=== PATIENT | female | born 2000 | race Caucasian/White ===

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

== ENCOUNTER 2019-12-12 03:48 | Emergency (ER) | payer OTHER ==
[~2019-12-12] VITALS: Ht 170.2 cm; Wt 52.4 kg
[~2019-12-12 03:48] MED LIST changes: +HYDR-3165 PO; -HYDR-971 PO
--- NOTE | 2019-12-12 03:52 | PHYS DOC ---
Past History Past Medical History: Bronchitis, Endometriosis Past Medical History History of endometriosis, history of dysfunctional uterine bleeding, gravid approximately 5 weeks-first Past Surgical History: Other Smoking: Non-smoker (Vapes), Cigarettes Alcohol Use: None Drug Use: None General Adult HPI: HPI: ".. I ve been having some spotting.. and severe cramping... worse than my endometriosis... But I am about 5 weeks .... And starting to worry and maybe have an ectopic ..." Patient is a 19 year old female who presents with above history and complaints of with lower pelvic pain and spotting. Patient estimates she is 5 weeks . Patient has followed at the [facility]. Has planned THEATRICAL AGENT visit on January 03. at . Patient is taking vitamins. Patient does vape. No history of STDs. Has had 10 lifetime sex partner. Patient denies any trauma. Patient denies any travel outside the [facility]. Patient denies any history immunosuppression suppression. Patient does have a history of endometriosis and dysfunctional uterine bleeding. Patient denies any recent bad food intake. Has had normal bowel movements. No history of ill contacts and no history of abuse. Review of Systems: Review of Systems: Constitutional: Denies fever or chills Eyes: Denies change in visual acuity HENT: Denies nasal congestion or sore throat Respiratory: Denies cough or shortness of breath Cardiovascular: Denies chest pain or edema GI: Complains of abdominal pain, nausea,. Denies vomiting, bloody stools or diarrhea . Complains of vaginal spotting : Denies dysuria Musculoskeletal: Denies back pain or joint pain Integument: Denies rash Neurologic: Denies headache, focal weakness or sensory changes Endocrine: Denies polyuria or polydipsia Lymphatic: Denies swollen glands Psychiatric: Denies depression or anxiety Heart Score: Risk Factors: Risk Factors: DM, Current or recent (<one month) smoker, HTN, HLP, family his tory of CAD, obesity. Risk Scores: Score 0 - 3: 2.5% MACE over next 6 weeks - Discharge Home Score 4 - 6: 20.3% MACE over next 6 weeks - Admit for Clinical Observation Score 7 - 10: 72.7% MACE over next 6 weeks - Early Invasive Strategies Family History: Family History: Noncontributory Current Medications: Current Meds: See nursing for home meds Allergies: Allergies: Allergies Coded Allergies Type Severity Reaction Last Updated Verified No Known Drug Allergies 10/11/16 No Physical Exam: PE: Constitutional: Moderate acute emotional distress, non-toxic appearance. [] HENT: Normocephalic, atraumatic, bilateral external ears normal, oropharynx moist, no oral exudates, nose normal. [] Eyes: PERRLA, EOMI, conjunctiva normal, no discharge. [] Neck: Normal range of motion, no tenderness, supple, no stridor. [] Cardiovascular:Heart rate regular rhythm, no murmur [] Lungs & Thorax: Bilateral breath sounds equal at apex with scattered wheezes on auscultation [] Abdomen: Bowel sounds normal, soft, lower pelvic tenderness, no masses, no pulsatile masses. [] Does have some spotting from os. Mild cervical motion tenderness. Some localization of left adnexal area. Rectal nontender. No b leeding. Mild rebound to the lower pelvic area. Skin: Warm, dry, no erythema, no rash. [] Back: No tenderness, no CVA tenderness. [] Extremities: No tenderness, no cyanosis, no clubbing, ROM intact, no edema. [] No psoas muscle sign. Neurologic: Alert and oriented X 3, normal motor function, normal sensory function, no focal deficits noted. [] DTRs +2 patellar brachial. Silver Solderer equal. No drift. Psychologic: Affect very anxious, judgement normal, mood normal. [] EKG: EKG: [] Radiology/Procedures: Radiology/Procedures: [][place] [id number] IMAGING REPORT Signed PATIENT: YESSI ARIAS ACCOUNT: [id number] : 2000 LOCATION: ER AGE: 19 SEX: F EXAM STATUS: REG ER ORD. PHYSICIAN: ABBY MARTINEZ MD REASON: 5 week gravid, spotting and cramping PROCEDURE: TRANSVAGINAL Transvaginal OB ultrasound less than 14 weeks 12/12/2019 CLINICAL HISTORY: First trimester with spotting and cramping. TECHNIQUE: A transvaginal pelvic ultrasound was performed. Multiple images were obtained. FINDINGS: Within the endometrial canal of the fundus/body of the uterus, an oval-shaped structure consistent with a gestational sac is seen. There is a small associated yolk sac. The mean sac diameter is 6.1 mm. This corresponds to an estimated gestational age by ultrasound of 5 weeks 2 days plus or minus a standard deviation of 5 days. No embryonic pole is seen at this time to confirm a living IUP. The right ovary is normal in size and echogenicity. It measures 2.2 x 1.2 x 1.1 cm in size. The left ovary is normal in size. It measures 2.6 x 2.3 x 2.2 cm in size. Within the left ovary a rounded structure with internal echoes is seen consistent with a corpus luteum. This measures 1.4 cm in size. Small amount of free fluid is seen within the pelvis. IMPRESSION: Findings are seen which are most consistent with a very early IUP as discussed above. Electronically signed by: John Lainez MD (12/12/2019 6:12 AM) [id number] DICTATED AND SIGNED BY: JOHN LAINEZ MD DATE: 12/12/19611 CC: ABBY MARTINEZ MD; PCP,NO ~ Course & Med Decision Making: Course & Med Decision Making Pertinent Labs and Imaging studies reviewed. (See chart for details) Patient can continue pad counts. Get repeat beta hCG in 3 days. Follow-up cultures. Make plans for site of delivery since [facility] does not offer DRAPERY INSTALLER's admission services. Must stop smoking. IUP can not yet be confirmed, but does appear to have a intrauterine . Impression: 1. Abdomen Pain 2. Threaten 3. Tobacco Use- Vapes 4. Hx. Endometriosis and dysfunctional uterine bleeding. 5. BHCG 3645 6. Blood type B positive 7. Bacterial Vaginosis-few clue Cells- Pt. to follow up pending labs. (Discuss tx. on planned follow up with OB) [] Juan David Disclaimer: Juan David Disclaimer: This electronic medical record was generated, in whole or in part, using a voice recognition dictation system. Departure Departure: Disposition: HOME/RESIDENCE PRIOR TO ADM Condition: STABLE Referrals: PCP,NO (PCP) Justification of Admission: Justification of Admission: Justification of Admission Dx: N/A Juan David Disclaimer This chart was dictated in whole or in part using Voice Recognition software in a busy, high-work load, and often noisy Emergency Department environment. It may contain unintended and wholly unrecognized errors or omissions. ABBY MARTINEZ MD Dec 12, 2019 03:52
[2019-12-12] MEDS ORDERED: IV RINGERS SOLUTION,LACTATED 1,000 ML IV SCH (04:00)
[2019-12-12 04:33] VITALS: BP 141/73
[2019-12-12 05:21] LABS: AMPHETAMINE/METHAMPHETAMINE NEG (NEG); BARBITURATES NEG (NEG); BENZODIAZEPINES NEG (NEG); CANNABINOIDS POS (NEG); COCAINE NEG (NEG); METHADONE NEG (NEG); OPIATES NEG (NEG); PHENCYCLIDINE NEG (NEG)
[2019-12-12 05:38] LABS: BASO % 0 % (0-3); EOS # 0.1 x10^3/uL (0.0-0.7); EOS % 1 % (0-3); HEMOGLOBIN 12.7 g/dL (12.0-15.5); LYMPH # 2.2 x10^3/uL (1.0-4.8); LYMPH % 23 % (24-48); MEAN CORPUSCULAR HEMOGLOBIN 33 pg (25-35); MEAN CORPUSCULAR HGB CONC 35 g/dL (31-37); MEAN CORPUSCULAR VOLUME 96 fL (79-100); MONO # 0.8 x10^3/uL (0.0-1.1); MONO % 8 % (0-9); NEUT # 6.6 x10^3uL (1.8-7.7); NEUT % 68 % (31-73); PLATELET COUNT 226 x10^3/uL (140-400); RED BLOOD COUNT 3.86 x10^6/uL (3.50-5.40); RED CELL DISTRIBUTION WIDTH 12.2 % (11.5-14.5); WHITE BLOOD COUNT 9.7 x10^3/uL (4.0-11.0)
[2019-12-12 05:45] LABS: ALBUMIN 4.2 g/dL (3.4-5.0); CALCIUM 8.7 mg/dL (8.5-10.1); GFR 70.7; TOTAL BILIRUBIN 0.4 mg/dL (0.2-1.0); TOTAL PROTEIN 7.5 g/dL (6.4-8.2)
[2019-12-12 05:46] LABS: DIRECT BILIRUBIN 0.1 mg/dL (0.0-0.2); MAGNESIUM 1.8 mg/dL (1.8-2.4)
[2019-12-12] MEDS ORDERED: POTASSIUM CHLORIDE 20 MEQ TABLET.ER. PO ONE ×2 (06:13→06:15)
--- NOTE | 2019-12-12 06:15 | RAD ---
Transvaginal OB ultrasound less than 14 weeks 12/12/2019 CLINICAL HISTORY: First trimester with spotting and cramping. TECHNIQUE: A transvaginal pelvic ultrasound was performed. Multiple images were obtained. FINDINGS: Within the endometrial canal of the fundus/body of the uterus, an oval-shaped structure consistent with a gestational sac is seen. There is a small associated yolk sac. The mean sac diameter is 6.1 mm. This corresponds to an estimated gestational age by ultrasound of 5 weeks 2 days plus or minus a standard deviation of 5 days. No embryonic pole is seen at this time to confirm a living IUP. The right ovary is normal in size and echogenicity. It measures 2.2 x 1.2 x 1.1 cm in size. The left ovary is normal in size. It measures 2.6 x 2.3 x 2.2 cm in size. Within the left ovary a rounded structure with internal echoes is seen consistent with a corpus luteum. This measures 1.4 cm in size. Small amount of free fluid is seen within the pelvis. IMPRESSION: Findings are seen which are most consistent with a very early IUP as discussed above. Electronically signed by: John Lainez MD (12/12/2019 6:12 AM) [id number]
[2019-12-12 06:24] LABS: BACTERIA,URINE FEW /HPF (0-FEW); BILIRUBIN,URINE NEG (NEG); CLARITY,URINE HAZY; COLOR,URINE STRAW; GLUCOSE,URINE NEG (NEG); NITRITE,URINE NEG (NEG); RBC,URINE OCC /HPF (0-2); SQUAMOUS EPITHELIAL CELL,UR FEW /LPF; UROBILINOGEN,URINE 0.2 mg/dL (0.2 mg/dL); WBC,URINE OCC /HPF (0-4)
[2019-12-15 02:07] LABS: CHLAMYDIA PROBE Negative (Negative)
== END 2019-12-12 06:45 | disposition home or self-care (01) ==
LOC: ER 03:48
DX: O20.0 Threatened abortion (principal); O23.591 Infection of other part of genital tract in pregnancy, first trimester; B96.89 Other specified bacterial agents as the cause of diseases classified elsewhere; O99.331 Smoking (tobacco) complicating pregnancy, first trimester; Z3A.01 Less than 8 weeks gestation of pregnancy
CPT/HCPCS: 76817; 80048; 80076; 80307; 81001; 81025; 82550; 83690; 83735; 84484; 84702; 85025; 85610; 85730; 86705; 86709; 86803; 86900; 86901; 87340; 87491; 87591; 99284; J7120; Q0111